=== PATIENT | female | born 2000 | race African-American/Black ===

== ENCOUNTER 2020-02-01 16:55 | Emergency (ER) | payer SELFPAY ==
[2020-02-01] MEDS ORDERED: ONDANSETRON HCL INJ/PF 4 MG/2 ML SDV IV ONE (18:28)
[2020-02-01] MEDS ORDERED: ACETAMINOPHEN 325 MG TABLET PO ONE (18:28)
[2020-02-01] MEDS ORDERED: NORMAL SALINE 1000 ML 1,000 ML IV ONE (18:28)
[2020-02-01 19:57] LABS: ABSOLUTE BASOPHILS # (AUTO) 0.1 10^3/uL (0.0-0.2); ABSOLUTE EOSINOPHILS # (AUTO) 0.1 10^3/uL (0.0-0.6); ABSOLUTE LYMPHOCYTES (AUTO) 2.6 10^3/uL (0.5-4.7); ABSOLUTE MONOCYTES (AUTO) 0.5 10^3/uL (0.1-1.4); ABSOLUTE NEUT (AUTO) 2.5 10^3/uL (1.7-8.2); BASOPHILS % (AUTO) 1.3 % (0-2); EOSINOPHILS % (AUTO) 1.7 % (0-6); HEMATOCRIT 41.9 % (36.0-47.0); HEMOGLOBIN 14.1 g/dL (12.0-15.5); LYMPHOCYTES % (AUTO) 45.2 % (13-45); MEAN CORPUSCULAR HEMOGLOBIN 31.2 pg (27.0-33.4); MEAN CORPUSCULAR HGB CONC 33.6 g/dL (32.0-36.0); MEAN CORPUSCULAR VOLUME 93 fl (80-97); MONOCYTES % (AUTO) 9.3 % (3-13); PLATELET COUNT 402 10^3/uL (150-450); RED BLOOD COUNT 4.52 10^6/uL (3.72-5.28); RED CELL DISTRIBUTION WIDTH 12.5 % (11.5-14.0); SEGMENTED NEUTROPHILS % (AUTO) 42.5 % (42-78); TOTAL CELLS COUNTED % (AUTO) 100 %; WHITE BLOOD COUNT 5.8 10^3/uL (4.0-10.5)
[2020-02-01 20:02] LABS: APPEARANCE,URINE SLIGHTLY-CLOUDY; BILIRUBIN,URINE NEGATIVE (NEGATIVE); COLOR,URINE YELLOW; GLUCOSE, URINE NEGATIVE (NEGATIVE); KETONES,URINE NEGATIVE (NEGATIVE); LEUKOCYTE ESTERASE,URINE NEGATIVE (NEGATIVE); NITRITE,URINE NEGATIVE (NEGATIVE); PROTEIN,URINE NEGATIVE (NEGATIVE); URINE SPECIFIC GRAVITY 1.021
[2020-02-01 20:10] LABS: ALKALINE PHOSPHATASE 78 U/L (50-135); ANION GAP 8 (5-19); ASPARTATE AMINO TRANSFERASE 27 U/L (5-30); BILIRUBIN,TOTAL 0.3 mg/dL (0.2-1.3); BLOOD UREA NITROGEN 6 mg/dL (7-20); CALCIUM 10.3 mg/dL (8.4-10.2); CARBON DIOXIDE 28 mmol/L (22-30); CHLORIDE 102 mmol/L (98-107); GLUCOSE 75 mg/dL (75-110); POTASSIUM 3.8 mmol/L (3.6-5.0); TOTAL PROTEIN 8.4 g/dL (6.3-8.2)
--- NOTE | 2020-02-01 21:30 | ER Document Report ---
ED Medical Screen (RME) - General Chief Complaint: Headache Stated Complaint: HEADACHE,ABDOMINAL PAIN Time Seen by Provider: 02/01/20 18:21 Primary Care Provider: THANH BURTON APRN [Primary Care Provider] - Follow up as needed Mode of Arrival: Ambulatory Information source: Patient Notes: HPI; 19-year-old female presents to the emergency room complaining of frequent headaches 3-4 times a week. Persistent body aches, nausea, and diarrhea for the past 3 weeks. General fatigue. States she takes ibuprofen and Tylenol with some relief. Did not take any medications today. Denies any COVID-19 exposure. Denies sudden thunderclap, denies worst headache of her life. Denies photophobia. Denies any history of migraines. Has any head trauma or head injury. PE: Alert and oriented x3. Lungs: Clear to auscultation without rales, rhonchi, wheezes. Heart: Regular rate rhythm without murmurs, rubs, gallops. I have greeted and performed a rapid initial assessment of this patient. A comprehensive ED assessment and evaluation of the patient, analysis of test results and completion of the medical decision making process will be conducted by additional ED providers. I have specifically instructed the patient or family members with the patient to immediately return to any nursing staff should anything change in the patient's condition or with their chief complaint. TRAVEL OUTSIDE OF THE [place] IN LAST 30 DAYS: No - Related Data Allergies/Adverse Reactions: sulfamethoxazole [From Bactrim] Allergy (Verified 02/01/20 18:21) trimethoprim [From Bactrim] Allergy (Verified 02/01/20 18:21) Past Medical History - Immunizations Immunizations up to date: Yes Hx Diphtheria, Pertussis, Tetanus Vaccination: Yes Physical Exam - Vital signs Vitals: Temp Pulse Resp BP Pulse Ox 99.0 F 90 20 126/69 H 99 02/01/20 17:26 02/01/20 17:26 02/01/20 17:26 02/01/20 17:26 02/01/20 17:26 Course - Vital Signs Vital signs: Temp Pulse Resp BP Pulse Ox 99.0 F 90 20 126/69 H 99 02/01/20 17:26 02/01/20 17:26 02/01/20 17:26 02/01/20 17:26 02/01/20 17:26 - Laboratory Result Diagrams: 02/01/20 19:45 02/01/20 19:45 Laboratory results interpreted by me: 02/01/20 02/01/20 02/01/20 19:45 19:45 19:45 Lymph % (Auto) 45.2 H BUN 6 L Calcium 10.3 H Total Protein 8.4 H Urine Urobilinogen 2.0 H Urine Ascorbic Acid 40 H Doctor's Discharge - Discharge Referrals: THANH BURTON APRN [Primary Care Provider] - Follow up as needed
[2020-02-02] MEDS ORDERED: KETOROLAC TROMETHAMINE INJ/PF 30 MG/1 ML SDV IV ONE (04:57)
[2020-02-02] MEDS ORDERED: METOCLOPRAMIDE HCL INJ/PF 10 MG/2 ML SDV IV ONE (04:58)
[2020-02-02] MEDS ORDERED: DIPHENHYDRAMINE HCL 50 MG/ML VIAL IV ONE (04:58)
[2020-02-02 06:44] VITALS: BP 100/57
--- NOTE | 2020-02-02 06:46 | ER Document Report ---
ED General - General Chief Complaint: Headache Stated Complaint: HEADACHE,ABDOMINAL PAIN Time Seen by Provider: 02/01/20 18:21 Primary Care Provider: THANH BURTON APRN [NO LOCAL MD] - Follow up as needed Mode of Arrival: Ambulatory TRAVEL OUTSIDE OF THE [place] IN LAST 30 DAYS: No - HPI Notes: Chief Complaint: Headache Historian: History obtained from patient HPI: This is a 19-year-old female complaining of migraine type headache for the past 3 to 4 days. Patient says she gets regular headaches almost weekly since childhood. Only treats them with Tylenol or Motrin but this time it did not resolve it. Her pain is rated a 3 out of 10. At times she will have intermittent nausea, photophobia, sensitivity to sound. Denies vision changes, weakness, numbness. Headache was gradual onset. She describes her current symptoms as identical to her prior headache symptoms. She denies head injury or trauma. ROS: Constitutional: no fevers. HEENT: Headache CV: no chest pain or palpitations. Resp: no cough or SOB. GI: Nausea : no dysuria, hematuria, or incont. MSK: no back pain, no joint swelling/redness. Skin: no rashes or itching. Neuro: no seizures, weakness, numbness, or confusion. Hematological: no ecchymosis or easy bleeding. Endocrine: no polyuria/polydipsia, no heat/cold intolerance. Psych: no SI/HI, AH/VH or memory loss. PMHx: Reviewed and agree as charted by RN. PSHx: Reviewed and agree as charted by RN. SOCHx: Reviewed and agree as charted by RN. FHX: No significant familial comorbid conditions directly related to patient complaint Current Medications: Reviewed and agree with the patient medications as charted by the RN. Allergies: Reviewed and agree with the listed allergies as charted by the RN Physical Exam: Vitals: Reviewed in chart as documented by RN. General: Alert and in NAD. Head: Normocephalic; atraumatic Eyes: PERRLA, Conjunctivae clear sclerae non-icteric bilat ENT: no soft palate swelling or uvular deviation Neck: trachea midline, no unilateral swelling/tenderness/lymphadenopathy. Full range of motion of C-spine negative Kernig and Brudzinski sign CV: RRR, no M/R/G; symmetric distal pulses Resp: respirations even and unlabored, CTA bilat. GI: abd soft and nondistended. NTTP. normal BS. no masses/HSM. no CVAT bilat MSK: FROM of all extremities. No midline CTL spine tenderness/deformity Skin: warm, moist, good turgor. no rash/lesions Neuro: Alert and oriented X 4. following CN 2-12 intact. no unilateral weakness/numbness Psych: No SI/HI or AH/VH. ED Results: Medical Decision-Making: Presentation of a headache that appears to be most consistent with tension versus migrainous type headache. Headache was not maximal in onset, patient has no focal neurologic deficits, no nuchal rigidity, vital signs within normal limits, no papilledema, and patient is overall well in appearance. Based on clinical history and examination I do not suspect an acute subarachnoid hemorrhage, dural venous sinus thrombosis, acute meningitis, or intercranial mass. Given my low clinical suspicion for any acute life-threatening etiology, I do not feel advanced neuro imaging or laboratory testing is indicated at this time. Will proceed with headache cocktail and reassess. Patient feeling much better after migraine cocktail and IV fluids. She remains neurologically intact. Plan to DC patient home, will give her a prescription for Fioricet for her recurrent migraines. PCP referral given for follow-up return factors discussed - Related Data Allergies/Adverse Reactions: sulfamethoxazole [From Bactrim] Allergy (Verified 02/01/20 18:21) trimethoprim [From Bactrim] Allergy (Verified 02/01/20 18:21) Past Medical History - General Information source: Patient - Social History Smoking Status: Unknown if Ever Smoked Family History: Reviewed & Not Pertinent - Immunizations Immunizations up to date: Yes Hx Diphtheria, Pertussis, Tetanus Vaccination: Yes Physical Exam - Vital signs Vitals: Temp Pulse Resp BP Pulse Ox 99.0 F 90 20 126/69 H 99 02/01/20 17:26 02/01/20 17:26 02/01/20 17:26 02/01/20 17:26 02/01/20 17:26 Course - Vital Signs Vital signs: Temp Pulse Resp BP Pulse Ox 97.7 F 95 H 20 140/83 H 100 02/01/20 23:22 02/01/20 23:22 02/01/20 23:22 02/01/20 23:22 02/01/20 23:22 - Laboratory Result Diagrams: 02/01/20 19:45 02/01/20 19:45 Laboratory results interpreted by me: 02/01/20 02/01/20 02/01/20 19:45 19:45 19:45 Lymph % (Auto) 45.2 H BUN 6 L Calcium 10.3 H Total Protein 8.4 H Urine Urobilinogen 2.0 H Urine Ascorbic Acid 40 H Discharge - Discharge Clinical Impression: Headache Condition: Stable Disposition: HOME, SELF-CARE Instructions: Headache ([facility]) Additional Instructions: Take medications as prescribed. Follow-up and establish care with a primary care doctor. Drink plenty of fluids. Return to the ER if your condition wo rsens. Prescriptions: Butalb/Acetaminophen/Caffeine [Fioricet (50-325-40 mg) Tablet] 1 tab PO Q4HP PRN #15 tab PRN Reason: Forms: Parent Work Note Referrals: THANH BURTON APRN [NO LOCAL MD] - Follow up as needed
== END 2020-02-02 06:59 | disposition home or self-care (01) ==
LOC: ER 16:55
DX: R51.9 Headache, unspecified (principal); R10.9 Unspecified abdominal pain; R11.0 Nausea; H53.149 Visual discomfort, unspecified; Z79.899 Other long term (current) drug therapy; Z88.2 Allergy status to sulfonamides; Z88.8 Allergy status to other drugs, medicaments and biological substances
CPT/HCPCS: 99284; 96374; 96375; 36415; 84703; 85025; 80053; 81001; J1200; J1885; J2765